=== PATIENT | male | born 1995 | race Caucasian/White ===

== ENCOUNTER 2024-10-07 15:05 | Emergency (ER) | payer OTHER ==
[2024-10-07 16:12] LABS: SARS-CoV-2 Antigen CONTROL BLUE LINE VIS/BG OK; SARS-CoV-2 Antigen Rapid Res Negative (Negative)
--- NOTE | 2024-10-07 16:16 | EDPHYS ---
Physician Documentation [facility] Name: Pavel Koo Age: 29 yrs Sex: Male : 1995 Arrival Date: 10/07/2024 Time: 15:05 Bed IW2 Private MD: ED Physician Leighton Goznalez HPI: 10/07 16:14 This 29 yrs old Male presents to ER via Ambulatory with complaints of Headache, Flu kb Symptoms. 16:14 Patient is a 29-year-old male who presents for fever, chills, cough, congestion, sore kb throat, headache, body aches that started 2 days ago. No aggravating or alleviating symptoms. Denies chest pain or shortness of breath.. Historical: - Allergies: 15:45 No Known Allergies; ko1 - Home Meds: 15:45 None [Active]; ko1 - PMHx: 15:45 None; ko1 - PSHx: 15:45 None; ko1 - Immunization history:: Adult Immunizations unknown. - Infectious Disease History:: Denies. - Social history:: Smoking status: Patient denies any tobacco usage or history of. ROS: 16:13 Constitutional: As per HPI kb Exam: 16:13 Constitutional: This is a well developed, well nourished patient who is awake, alert, kb and in no acute distress. Head/Face: Normocephalic, atraumatic. ENT: Moist Mucous membranes Cardiovascular: Regular rate Respiratory: Respirations even and unlabored. No increased work of breathing. Talking in full sentences Skin: Warm, dry with normal turgor. Normal color. MS/ Extremity: Pulses equal, no cyanosis. Neurovascular intact. Full, normal range of motion. Neuro: Awake and alert, GCS 15, oriented to person, place, time, and situation. Vital Signs: 15:40 BP 128 / 73; Pulse 94; Resp 18; Temp 97.4; Pulse Ox 100% ; ko1 16:25 BP 134 / 72; Pulse 90; Resp 16; Pulse Ox 99% ; ko1 [place] Coma Score: 16:14 Eye Response: spontaneous(4). Motor Response: obeys commands(6). Verbal Response: kb oriented(5). Total: 15. MDM: 15:13 Medical Screening Exam initiated kb 16:14 Differential diagnosis: Flu, COVID, strep, URI. Data reviewed: vital signs, nurses kb notes. I considered the following discharge prescriptions or medication management in the emergency department I discussed and recommended Over The Counter medications, Antibiotics: At this time antibiotics are not recommended, Antivirals: At this time, antivirals are not recommended. Test considered but Not performed: X-ray: Chest x-ray considered but lungs clear bilaterally, respirations even and unlabored, oxygen 100% on room air.. Counseling: I had a detailed discussion with the patient and/or guardian regarding the historical points, exam findings, and any diagnostic results supporting the discharge/admit diagnosis, lab results, the need for outpatient follow up, a family practitioner, to return to the emergency department if symptoms worsen or persist or if there are any questions or concerns that arise at home. 10/07 15:43 Order name: Flu; Complete Time: 16:12 kb 10/07 15:43 Order name: SARS-COV-2 Antigen Rapid; Complete Time: 16:12 kb 10/07 15:43 Order name: Strep kb 10/07 16:15 Order name: Throat Culture EDMS Administered Medications: No medications were administered Disposition: 17:27 Co-signature as Attending Physician, Leighton Gonzalez MD I reviewed the patient's care rn provided by the Advanced Practice Provider and agree with the diagnosis and treatment plan. Disposition Summary: 10/07/24 16:15 Discharge Ordered Notes: Location: Home kb Condition: Stable kb Diagnosis - Influenza due to identified novel influenza A virus kb Followup: kb - With: Emergency Department - When: As needed - Reason: Worsening of condition Followup: kb - With: Private Physician - When: 2 - 3 days - Reason: Recheck today's complaints, Continuance of care, Re-evaluation by your physician Discharge Instructions: - Discharge Summary Sheet kb - Influenza, Adult, Onsd-tz-Xsee kb Forms: - Medication Reconciliation Form kb - Antibiotic Education kb - Prescription Opioid Use kb - Patient Portal Instructions kb - Leadership Thank You Letter kb Signatures: Dispatcher [employer] EDSaadia Lorenzo, [place]-C COMMAND AND CONTROL-Leighton Mcclain MD MD rn Oliver, Kathy, RN RN ko1 Corrections: (The following items were deleted from the chart) 15:44 15:44 Influenza Screen (A \T\ B)+BA.LAB.BRZ ordered. EDID EDID 15:44 15:44 SARS-COV-2 Antigen Rapid+I.LAB.BRZ ordered. EDMS EDMS 15:44 Group A Streptococcus Rapid Sc+BA.LAB.BRZ ordered. EDMS EDMS
--- NOTE | 2024-10-07 16:16 | ER ---
Nurse's Notes [facility] Name: Pvael Koo Age: 29 yrs Sex: Male : 1995 Arrival Date: 10/07/2024 Time: 15:05 Bed IW2 Private MD: Diagnosis: Influenza due to identified novel influenza A virus Presentation: 10/07 15:40 Chief complaint: Patient states: runny nose, body aches, headache, chills, fever, cough ko1 and sore throat for past two days. Coronavirus screen: chills, congestion, cough unrelated to allergies, difficulty breathing, fever, runny nose, sore throat. Ebola Screen: No symptoms or risks identified at this time. Initial Sepsis Screen: Does the patient meet any 2 criteria? No. Patient's initial sepsis screen is negative. Does the patient have a suspected source of infection? No. Patient's initial sepsis screen is negative. Risk Assessment: Do you want to hurt yourself or someone else? Patient reports no desire to harm self or others. Onset of symptoms was October 05, 2024. 15:40 Method Of Arrival: Ambulatory ko1 15:40 Acuity: SHERIDAN 4 ko1 Triage Assessment: 15:45 Headache History: Denies prior headaches. General: Appears in no apparent distress. ko1 Behavior is calm, cooperative, appropriate for age. Pain: Complains of pain in forehead Pain currently is 6 out of 10 on a pain scale. Pain began gradually, Also complains of nausea. Neuro: No deficits noted. Historical: - Allergies: 15:45 No Known Allergies; ko1 - Home Meds: 15:45 None [Active]; ko1 - PMHx: 15:45 None; ko1 - PSHx: 15:45 None; ko1 - Immunization history:: Adult Immunizations unknown. - Infectious Disease History:: Denies. - Social history:: Smoking status: Patient denies any tobacco usage or history of. Vital Signs: 15:40 BP 128 / 73; Pulse 94; Resp 18; Temp 97.4; Pulse Ox 100% ; ko1 16:25 BP 134 / 72; Pulse 90; Resp 16; Pulse Ox 99% ; ko1 [place] Coma Score: 16:14 Eye Response: spontaneous(4). Motor Response: obeys commands(6). Verbal Response: kb oriented(5). Total: 15. ED Course: 15:07 Patient arrived in ED. mr 15:13 Saadia Madison FNP-C [facility]. kb 15:13 Leighton Gonzalez MD is Attending Physician. kb 15:45 Triage completed. ko1 15:45 Arm band placed on right wrist. Patient placed in an exam room, in waiting room, on ko1 pulse oximetry, Patient notified of wait time. 15:51 Strep Sent. ko1 15:51 SARS-COV-2 Antigen Rapid Sent. ko1 15:51 Flu Sent. ko1 15:51 COVID swab sent to lab. Flu and/or RSV swab sent to lab. Strep swab sent to lab. ko1 16:25 Angelica Rodriguez, RN is Primary Nurse. ko1 16:25 No provider procedures requiring assistance completed. Patient did not have IV access ko1 during this emergency room visit. Administered Medications: No medications were administered Outcome: 16:15 Discharge ordered by MD. kb 16:25 Discharged to home ambulatory, ko1 16:25 Condition: stable 16:25 Discharge instructions given to patient, Instructed on discharge instructions, follow up and referral plans. Demonstrated understanding of instructions, follow-up care, 16:26 Patient left the ED. ko1 Signatures: Saadia Madison FNP-C [employer]-Tootie Fitzpatrick, Luis Fernando Gould Angelica Rodriguez, RN RN ko1
[2024-10-07 22:36] VITALS: TEMP 97.4
[2024-10-07 22:37] VITALS: BP 134/72; O2SAT 99
== END 2024-10-07 16:26 | disposition home or self-care (01) ==
LOC: ER 15:05
DX: J10.1 Influenza due to other identified influenza virus with other respiratory manifestations (principal); Z11.52 Encounter for screening for COVID-19
CPT/HCPCS: 36415; 87070; 87081; 87804; 87811; 99283